=== PATIENT | female | born 1950 | race Caucasian/White ===

== ENCOUNTER 2023-06-24 08:15 | Outpatient (OUT) | payer MEDICARE, BC, SELFPAY ==
--- NOTE | 2023-06-24 | XR_ITS ---
The [address] [address] Patient Name: LUCA KESSLER MRN: [id number] date: 1950 Sex: F Assigned Patient Location: MRI Current Patient Location: Accession/Order Number: [id number] Exam Date: 06/24/2023 08:35 Report Date: 06/26/2023 08:56 At the request of: YU AVALOS Procedure: XR abdomen 1V EXAMINATION: XR abdomen 1V HISTORY: N20.0 ; follow-up kidney stones COMPARISON: XR KUB 06/20/2022 FINDINGS: KIDNEY/URETER - RIGHT: No visible renal or ureteral calcifications. KIDNEY/URETER - LEFT: Stable small stones within left kidney. PELVIS: No visible ureteral stones. BOWEL: No abnormal dilation or deviation. BONES: No acute abnormality. OTHER: Gallstones projecting over right upper quadrant. XR/XR abdomen 1V IMPRESSION: 1. Grossly stable left nephrolithiasis. 2. Grossly stable cholelithiasis. Electronically authenticated by: ALEJANDRO CUNHA Date: 06/26/2023 08:56
== END 2023-06-24 08:16 | disposition home or self-care (01) ==
LOC: MRI 08:21 → RAD 13:35
PROVIDERS: PCP Family Medicine; Visit Provider Urology
DX: N20.0 Calculus of kidney (principal)
CPT/HCPCS: 74018